=== PATIENT | male | born 1970 | race Caucasian/White ===

== ENCOUNTER 2022-03-29 13:15 | Observation (INO) ==
[2022-03-29 13:56] LABS: Basophils # 0.1 K/mcL (0.0-0.2); Basophils % 0.4 %; Eosinophils % 0.1 %; Hematocrit 47.3 % (37.5-50.1); Hemoglobin 16.4 g/dL (12.9-16.9); Immature Granulocytes % 0.4 % (0-4); Lymphocytes # 1.4 K/mcL (0.6-4.6); Lymphocytes % 7.5 %; Mean Corpuscular HGB Conc 34.7 g/dL (31.6-35.5); Mean Corpuscular Hemoglobin 32.2 pg (28.0-33.3); Mean Corpuscular Volume 92.7 fL (83.0-100.0); Monocytes % 5.4 %; Neutrophils # 15.7 K/mcL (1.6-8.9); Platelet Count 309 K/mcL (140-400); Red Cell Distribution Width 13.7 % (11.5-14.5); Segmented Neutrophils % 86.2 %; White Blood Count 18.3 K/mcL (4.3-11.1)
[2022-03-29 14:29] LABS: BUN/Creatinine Ratio 13 (6-26); Blood Urea Nitrogen 9 mg/dL (6-20); Calcium 9.6 mg/dL (8.6-10.3); Carbon Dioxide 24 mEq/L (23-29); Chloride 101 mEq/L (98-107); Glucose 121 mg/dL (70-105); Osmolality,Calculated 284 (280-300); Potassium 3.7 mEq/L (3.5-5.1); Sodium 137 mEq/L (136-145); Troponin I < 0.03 ng/mL (< 0.04); eGFR For African Americans > 60 (> 60); eGFR For Non-African Americans > 60 (> 60)
[2022-03-29] MEDS ORDERED: Aspirin 325 MG TABLET PO ONE (17:20)
[2022-03-29 18:47] LABS: Bilirubin,Urine Negative (Negative); Blood,Urine Negative (Negative); Clarity,Urine Clear (Clear); Color,Urine Colorless (Yellow); Glucose,Urine (UA) Normal (Normal); Ketones,Urine 20 mg/dL (Negative); Leukocyte Esterase,Urine Negative (Negative); Nitrite,Urine Negative (Negative); PH,Urine 7.5 pH Units (5.0-8.0); Protein,Urine Negative (Neg-Trace); Specific Gravity,Urine 1.009 (1.010-1.025); Urobilinogen,Urine Normal (Normal)
[2022-03-29] MEDS ORDERED: Piperacillin/Tazobactam 3.375 GM in 0.9 % Sodium Chloride Mini Bag 100 ML IVPB ONE (19:22)
[2022-03-29] MEDS ORDERED: *HR* OxyCODONE Immed Rel 5 MG TABLET PO PRN (19:45)
[2022-03-29] MEDS ORDERED: Melatonin 3 MG TABLET PO PRN (19:45)
[2022-03-29] MEDS ORDERED: Naloxone 0.4 MG/ML INJ IVP PRN (19:45)
[2022-03-29] MEDS ORDERED: *HR* Promethazine 25 MG/ML VIAL IM PRN (19:45)
[2022-03-29] MEDS ORDERED: Acetaminophen 325 MG TABLET PO PRN (19:45)
[2022-03-29] MEDS ORDERED: *HR* HYDROcodone/Acet 5/325 mg TABLET PO PRN (19:45)
[2022-03-29] MEDS ORDERED: Ondansetron 4 MG/2 ML VIAL IVP PRN (19:45)
[2022-03-29] MEDS ORDERED: Azithromycin 500 MG in 0.9 % Sodium Chloride 250 ML IVPB ONE (19:47)
[2022-03-29] MEDS ORDERED: Isovue-370 500 ML BOTTLE IVP ONE (19:49)
[2022-03-29] MEDS ORDERED: Ipratropium/Albuterol Neb 3 ML IH PRN (19:49)
[2022-03-29] MEDS ORDERED: Perflutren Lipid Microsphere 1.3 ML in 0.9 % Sodium Chloride 8.7 ML IVP PRN (19:51)
[2022-03-29] MEDS: Ipratropium/Albuterol Neb 3 ML IH SCH ×2 (19:59→23:22)
[2022-03-29 21:32] LABS: Influenza A PCR Negative (Negative); Influenza B PCR Negative (Negative); Resp. Syncytial Virus PCR Negative (Negative)
[2022-03-29 21:33] LABS: SARS-CoV-2 by PCR (In House) Negative (Negative)
[2022-03-29] MEDS: 0.9 % Sodium Chloride 1,000 ML IVC SCH (22:10)
[2022-03-29] MEDS: Loratadine 10 MG TABLET PO SCH (22:12)
[2022-03-30 03:43] LABS: Basophils % 0.4 %; Eosinophils # 0.1 K/mcL (0.0-0.6); Hematocrit 41.5 % (37.5-50.1); Immature Granulocytes % 0.3 % (0-4); Lymphocytes # 2.3 K/mcL (0.6-4.6); Lymphocytes % 21.9 %; Mean Corpuscular Hemoglobin 31.8 pg (28.0-33.3); Mean Corpuscular Volume 93.5 fL (83.0-100.0); Mean Platelet Volume 11.1 fL (9.4-12.4); Monocytes # 0.9 K/mcL (0.0-1.3); Monocytes % 8.9 %; Neutrophils # 7.2 K/mcL (1.6-8.9); Platelet Count 273 K/mcL (140-400); Red Blood Count 4.44 M/mcL (4.19-5.50); Red Cell Distribution Width 13.7 % (11.5-14.5); Segmented Neutrophils % 67.5 %; White Blood Count 10.6 K/mcL (4.3-11.1)
[2022-03-30 03:44] LABS: Hemoglobin 14.1 g/dL (12.9-16.9)
[2022-03-30 03:57] LABS: INR 1.3; Prothrombin Time 14.2 Seconds (9.4-12.1)
[2022-03-30 04:05] LABS: BUN/Creatinine Ratio 10 (6-26); Blood Urea Nitrogen 7 mg/dL (6-20); C-Reactive Protein 45 mg/L (Less than 10); Calcium 8.8 mg/dL (8.6-10.3); Carbon Dioxide 24 mEq/L (23-29); Chloride 105 mEq/L (98-107); Chol/HDL Ratio 4.3 (0-4.9); Cholesterol 197 mg/dL (< 200); Glucose 113 mg/dL (70-105); HDL Cholesterol 46 mg/dL (40-59); LDL Cholesterol,Calculated 139 mg/dL (< 100); Magnesium 1.8 mg/dL (1.6-2.6); Osmolality,Calculated 285 (280-300); Potassium 3.3 mEq/L (3.5-5.1); Sodium 138 mEq/L (136-145); Triglycerides 60 mg/dL (< 150); eGFR For African Americans > 60 (> 60); eGFR For Non-African Americans > 60 (> 60)
[2022-03-30] MEDS: Ipratropium/Albuterol Neb 3 ML IH SCH ×3 (04:05→11:31)
[2022-03-30] MEDS ORDERED: *HR* Enoxaparin 40 MG/0.4 ML SYRINGE SQ SCH (06:00)
[2022-03-30 06:21] LABS: Estimated Average Glucose 105 mg/dl; Hemoglobin A1C 5.3 %
[2022-03-30] MEDS: Saline Nasal Spray 44 ML BOTTLE NS PRN ×2 (06:33→08:04)
[2022-03-30] MEDS: 0.9 % Sodium Chloride 1,000 ML IVC SCH (07:56)
[2022-03-30] MEDS: Loratadine 10 MG TABLET PO SCH (07:57)
[2022-03-30] MEDS ORDERED: Folic Acid 1 MG TABLET PO SCH (09:00)
[2022-03-30] MEDS ORDERED: Thiamine (B-1) 100 MG TABLET PO SCH (09:00)
[2022-03-30] MEDS ORDERED: Vitamin B Complex/Vit C/Vit E 1 EACH TABLET PO SCH (09:00)
[2022-03-30] MEDS ORDERED: cefTRIAXone 1,000 MG in 0.9 % Sodium Chloride 10 ML IVP SCH (09:00)
[2022-03-30 10:34] VITALS: TEMP 98.1; O2SAT 97
[2022-03-30 10:36] VITALS: BP 160/90; PULSE 92
[2022-03-30] MEDS ORDERED: Azithromycin 500 MG in 0.9 % Sodium Chloride 250 ML IVPB SCH (20:00)
== END 2022-03-30 13:30 | disposition left against medical advice (07) ==
LOC: 3BNU 13:15 → EMEROOARM 13:15 → SUATTDRO 19:44 → 3BNU 20:50
PROVIDERS: ADMIT Internal Medicine; ATTEND Registered Nurse